=== PATIENT | female | born 1990 | race African-American/Black ===

== ENCOUNTER 2019-02-01 13:31 | Observation (INO) | payer MEDICAID ==
[~2019-02-01] VITALS: Ht 182.9 cm; Wt 137.9 kg
[2019-02-01 14:48] LABS: CLARITY URINE CLEAR (CLEAR); COLOR URINE YELLOW (YELLOW); KETONES URINE NEGATIVE (NEGATIVE); LEUKOCYTE ESTERASE URINE NEGATIVE (NEGATIVE); NITRITE URINE NEGATIVE (NEGATIVE); OCCULT BLOOD URINE NEGATIVE (NEGATIVE); PH URINE 5.5 (4.5-8.0); PROTEIN URINE NEGATIVE (NEGATIVE); SPECIFIC GRAVITY URINE 1.011 (1.005-1.030); UROBILINOGEN URINE 0.2 E.U./dL (0.2-1.0)
== END 2019-02-01 15:20 | disposition home or self-care (01) ==
LOC: 8 EST LDRP 13:31
PROVIDERS: ADMIT Obstetrics & Gynecology; ATTEND Obstetrics & Gynecology
DX: O26.893 Other specified pregnancy related conditions, third trimester (principal); R10.30 Lower abdominal pain, unspecified; O99.89 Other specified diseases and conditions complicating pregnancy, childbirth and the puerperium; M54.9 Dorsalgia, unspecified; Z3A.35 35 weeks gestation of pregnancy
CPT/HCPCS: 81003; 99281; G0378

== ENCOUNTER 2019-02-07 23:54 | Inpatient (IN) | payer MEDICAID ==
[~2019-02-07] VITALS: Ht 182.9 cm; Wt 138.8 kg
[2019-02-08] MEDS ORDERED: FERR-71 MT (01:13)
[2019-02-08] MEDS ORDERED: PREN1TAB78 MT (01:13)
[2019-02-08] MEDS: LACTATED RINGERS 1,000 ML IV SCH ×2 (01:52→06:08)
[2019-02-08 02:10] LABS: CLARITY URINE CLEAR (CLEAR); COLOR URINE YELLOW (YELLOW); KETONES URINE NEGATIVE (NEGATIVE); LEUKOCYTE ESTERASE URINE NEGATIVE (NEGATIVE); NITRITE URINE NEGATIVE (NEGATIVE); OCCULT BLOOD URINE NEGATIVE (NEGATIVE); PROTEIN URINE NEGATIVE (NEGATIVE); SPECIFIC GRAVITY URINE 1.027 (1.005-1.030)
[2019-02-08] MEDS ORDERED: LACTATED RINGERS 1,000 ML IV SCH ×2 (04:00→15:45)
[2019-02-08] MEDS ORDERED: DEXT 5%/LR + PITOCIN 20UNITS/L 1,000 ML IV SCH ×2 (04:00→10:54)
[2019-02-08] MEDS ORDERED: NALOXONE HCL 0.4 MG/ML 1ML VIAL IM PRN (04:00)
[2019-02-08] MEDS ORDERED: METHYLERGONOVINE MALEATE 0.2 MG/ML IM PRN (04:00)
[2019-02-08] MEDS ORDERED: TERBUTALINE SULFATE 1MG/ML VIAL SUBCUT PRN (04:45)
[2019-02-08 06:16] LABS: INR 0.9; PARTIAL THROMBOPLASTIN TIME 26.9 sec (23.4-31.0); PROTHROMBIN TIME 9.4 sec (9.6-11.0)
[2019-02-08 06:22] LABS: BASOPHILS % 0.4 % (0.0-2.0); EOSINOPHILS % 0.8 % (0.0-5.0); HEMATOCRIT. 34.5 % (36.0-48.0); HEMOGLOBIN. 11.5 g/dL (12.0-16.0); LYMPHOCYTES % 24.2 % (20.0-50.0); MEAN CORPUSCULAR HEMOGLOBIN 25.8 pg (28.0-32.0); MEAN CORPUSCULAR VOLUME 77.7 fL (81.0-99.0); MEAN PLATELET VOLUME 8.8 fl (7.4-10.4); MONOCYTES % 7.8 % (2.0-8.0); NEUTROPHILS % 66.8 % (40.0-76.0); PLATELET 260 x1000/uL (130-400); RED BLOOD CELL COUNT 4.43 mill/uL (4.2-5.4); RED CELL DISTRIBUTION WIDTH 14.6 % (11.6-14.6)
[2019-02-08 06:34] LABS: *AMPHETAMINES SCREEN URINE NEGATIVE (NEGATIVE); *BARBITURATES SCREEN URINE NEGATIVE (NEGATIVE); *BENZODIAZEPINES SCREEN URINE NEGATIVE (NEGATIVE); *COCAINE SCREEN URINE NEGATIVE (NEGATIVE); METHADONE URINE SCREEN NEGATIVE (NEGATIVE)
[2019-02-08 06:35] LABS: CANNABINOID URINE SCREEN NEGATIVE (NEGATIVE); OPIATES URINE SCREEN NEGATIVE (NEGATIVE); PHENCYCLIDINE URINE SCREEN NEGATIVE (NEGATIVE)
[2019-02-08 07:09] LABS: HEPATITIS B SURFACE ANTIGEN NEGATIVE
[2019-02-08] MEDS ORDERED: CITRIC ACID/SODIUM CITRATE SOLN 30ML UDC PO SCH (08:00)
[2019-02-08] MEDS ORDERED: ONDANSETRON HCL 4MG/2ML INJ ONE (08:11)
[2019-02-08] MEDS ORDERED: PHENYLEPHRINE HCL 10 MG/ML 1ML (IV VIAL) IV ONE (08:11)
[2019-02-08] MEDS ORDERED: SODIUM CHLORIDE 0.9% 10ML VIAL ONE ×2 (08:11→08:15)
[2019-02-08] MEDS ORDERED: CEFAZOLIN SODIUM 1000MG/VIAL ONE (08:11)
[2019-02-08] MEDS ORDERED: OXYTOCIN 10 UNITS/ML 1ML ONE ×2 (08:11→09:58)
[2019-02-08] MEDS ORDERED: KETOROLAC 60MG/2ML VIAL IM ONE (08:11)
[2019-02-08] MEDS ORDERED: DEXAMETHASONE 4MG/ML 1ML VIAL ONE (08:11)
[2019-02-08] MEDS ORDERED: MORPHINE SULFATE/PF 1MG/ML 10ML AMP ONE (08:11)
[2019-02-08] MEDS ORDERED: EPHEDRINE SULFATE 50MG/ML VIAL ONE (08:15)
[2019-02-08] MEDS ORDERED: BUPIVACAINE HCL/DEXTROSE/PF 0.75% 2ML AMP INJ ONE (08:19)
[2019-02-08] MEDS ORDERED: ONDANSETRON HCL 4MG/2ML INJ IV PRN (10:15)
[2019-02-08] MEDS ORDERED: MEPERIDINE HCL/PF 25MG/ML CPJ IV PRN (10:15)
[2019-02-08] MEDS ORDERED: HYDROMORPHONE HCL/PF 2MG/ML CPJ IV PRN (10:15)
[2019-02-08] MEDS ORDERED: BISACODYL 10MG SUPP PR PRN (11:00)
[2019-02-08] MEDS ORDERED: RHO(D) IMMUNE GLOBULIN 300 MCG/SYR IM PRN (11:00)
[2019-02-08] MEDS ORDERED: HYDROMORPHONE HCL/PF 2MG/ML CPJ IM PRN (11:00)
[2019-02-08] MEDS ORDERED: IBUPROFEN 400MG TABLET PO PRN (11:00)
[2019-02-08] MEDS ORDERED: ACETAMINOPHEN WITH CODEINE 300/30MG TABLET PO PRN (11:00)
[2019-02-08] MEDS ORDERED: DIPHENHYDRAMINE 50MG/ML VIAL IM PRN (11:45)
[2019-02-08 12:35] VITALS: BP 126/76
[2019-02-08 13:35] VITALS: BP 120/67
[2019-02-08 16:15] VITALS: BP 130/75
[2019-02-08 20:00] VITALS: BP 120/71
[2019-02-09 05:30] VITALS: BP 125/71
[2019-02-09 06:17] LABS: BASOPHILS % 0.2 % (0.0-2.0); EOSINOPHILS % 0.6 % (0.0-5.0); HEMATOCRIT. 33.5 % (36.0-48.0); HEMOGLOBIN. 10.9 g/dL (12.0-16.0); LYMPHOCYTES % 22.2 % (20.0-50.0); MEAN CORPUSCULAR HEMOGLOBIN 25.2 pg (28.0-32.0); MEAN CORPUSCULAR VOLUME 77.6 fL (81.0-99.0); MEAN PLATELET VOLUME 7.9 fl (7.4-10.4); MONOCYTES % 7.6 % (2.0-8.0); NEUTROPHILS % 69.4 % (40.0-76.0); PLATELET 234 x1000/uL (130-400); RED BLOOD CELL COUNT 4.32 mill/uL (4.2-5.4); RED CELL DISTRIBUTION WIDTH 14.6 % (11.6-14.6)
[2019-02-09 09:00] VITALS: BP 104/67
[2019-02-09 16:57] VITALS: BP 119/65
[2019-02-09] MEDS: IBUPROFEN 800MG TABLET PO PRN (17:44)
[2019-02-09 20:00] VITALS: BP 120/68
[2019-02-10 07:36] VITALS: BP 126/78
[2019-02-10] MEDS: IBUPROFEN 800MG TABLET PO PRN ×3 (08:55→23:26)
[2019-02-10 15:26] VITALS: BP 124/66
[2019-02-10 21:00] VITALS: BP 140/79
[2019-02-10 23:21] VITALS: BP 141/88
[2019-02-11 04:00] VITALS: BP 127/69
[2019-02-11 07:56] VITALS: BP 112/70
[2019-02-11] MEDS ORDERED: TETANUS, DIPHTHERIA, PERTUSSIS VAC/PF 0.5ML (>7YR OLD) IM ONE (08:00)
== END 2019-02-11 09:45 | disposition home or self-care (01) | DRG 540 ==
LOC: 8 EST LDRP 23:54 → OBSVTOIN 23:54 → 8EST 02-08 12:42
PROVIDERS: ADMIT Obstetrics & Gynecology; ATTEND Obstetrics & Gynecology
PROC: 10D00Z1 Extraction of Products of Conception, Low, Open Approach (ICD-10-PCS; principal; 2019-02-08)
PROC: 0UB70ZZ Excision of Bilateral Fallopian Tubes, Open Approach (ICD-10-PCS; 2019-02-08)
DX: O60.14X0 Preterm labor third trimester with preterm delivery third trimester, not applicable or unspecified (principal); D25.9 Leiomyoma of uterus, unspecified; O34.211 Maternal care for low transverse scar from previous cesarean delivery; O34.13 Maternal care for benign tumor of corpus uteri, third trimester; D64.9 Anemia, unspecified; O90.81 Anemia of the puerperium; Z37.0 Single live birth; Z3A.36 36 weeks gestation of pregnancy
CPT/HCPCS: 36415; 76805; 76818; 80305; 86592; 86703; 86762; 86850; 86900; 86920; 87340; 88302; 88307; 90715; 99281; J0690; J1100; J1885; J2274; J2370; J2405; J2590; J3105; J3490; J7120

== ENCOUNTER 2019-02-12 21:11 | Emergency (ER) | payer MEDICAID ==
[~2019-02-12] VITALS: Ht 182.9 cm; Wt 137.0 kg
[~2019-02-12 21:11] MED LIST: FERR-71 MT
[2019-02-12] MEDS ORDERED: ONDANSETRON HCL 4MG/2ML INJ IV STA (22:20)
[2019-02-12] MEDS ORDERED: SODIUM CHLORIDE 0.9% 1,000 ML IV ONE (22:20)
[2019-02-12] MEDS ORDERED: MAGNESIUM/ALUMINUM HYDROXIDE/SIMETHICONE 30ML UDC PO STA (22:20)
[2019-02-12] MEDS ORDERED: FAMOTIDINE 20MG/2ML VIAL IV STA (22:20)
[2019-02-12 23:11] LABS: BASOPHILS % 0.7 % (0.0-2.0); EOSINOPHILS % 1.6 % (0.0-5.0); HEMOGLOBIN. 10.5 g/dL (12.0-16.0); LYMPHOCYTES % 29.3 % (20.0-50.0); MEAN CORPUSCULAR HEMOGLOBIN 25.5 pg (28.0-32.0); MEAN CORPUSCULAR VOLUME 77.6 fL (81.0-99.0); MEAN PLATELET VOLUME 8.6 fl (7.4-10.4); MONOCYTES % 6.7 % (2.0-8.0); NEUTROPHILS % 61.7 % (40.0-76.0); PLATELET 261 x1000/uL (130-400); RED BLOOD CELL COUNT 4.12 mill/uL (4.2-5.4); RED CELL DISTRIBUTION WIDTH 14.7 % (11.6-14.6)
[2019-02-12 23:13] LABS: CHLORIDE 108 mEq/L (98-107)
[2019-02-13 01:29] VITALS: BP 135/69
== END 2019-02-13 02:31 | disposition left against medical advice (07) ==
LOC: ER 21:11
DX: O90.89 Other complications of the puerperium, not elsewhere classified (principal); R10.13 Epigastric pain; R07.9 Chest pain, unspecified; Z98.890 Other specified postprocedural states
CPT/HCPCS: 36415; 71045; 76705; 80053; 83690; 83880; 84484; 85025; 93005; 96374; 96375; 99284; J2405; J3490; J7030; Z7610